=== PATIENT | female | born 1995 | race American Indian/Alaskan Native ===

== ENCOUNTER 2016-11-29 09:28 | Emergency (ER) | payer SELFPAY ==
[2016-11-29 10:22] LABS: Alanine Aminotransferase 10 units/L (7-56); Albumin 4.2 g/dL (3.9-5); Albumin/Globulin Ratio 1.1 %; Alkaline Phosphatase 46 units/L (35-129); Anion Gap 19 mmol/L; Blood Urea Nitrogen 12 mg/dL (7-17); Calcium 8.9 mg/dL (8.4-10.2); Carbon Dioxide 23 mmol/L (22-30); Chloride 103.9 mmol/L (98-107); Glucose 110 mg/dL (65-100); Lipase 30 units/L (13-60); Potassium 3.8 mmol/L (3.6-5.0); Sodium 142 mmol/L (137-145)
[2016-11-29 10:23] LABS: Basophils % (Auto) 0.5 % (0.0-1.8); Eosinophils % (Auto) 2.1 % (0.0-4.3); Hematocrit 35.9 % (30.3-42.9); Hemoglobin 11.8 gm/dl (10.1-14.3); Mean Corpuscular HGB Conc 33 % (30-34); Mean Corpuscular Hemoglobin 28 pg (28-32); Mean Corpuscular Volume 85 fl (79-97); Platelet Count 303 K/mm3 (140-440); Red Blood Count 4.23 M/mm3 (3.65-5.03); Red Cell Distribution Width 13.7 % (13.2-15.2); White Blood Count 6.2 K/mm3 (4.5-11.0)
[2016-11-29 10:45] LABS: Bacteria,Urine 1+ /HPF (Negative); Bilirubin,Urine NEG (Negative); Blood,Urine LG (Negative); Ketones,Urine TR mg/dL (Negative); Leukocyte Esterase,Urine NEG (Negative); Mucus,Urine 2+ /HPF; Nitrite,Urine NEG (Negative); Urobilinogen,Urine < 2.0 mg/dL (<2.0)
[2016-11-29 10:46] LABS: RBC,Urine > 182.0 /HPF (0.0-6.0)
--- NOTE | 2016-11-29 17:05 | Emergency Department Report ---
HPI - General Chief Complaint: Abdominal Pain Time Seen by Provider: 11/29/16 16:34 - HPI HPI: This is a 20-year-old -[place] female , who presents to the ER with flank pain. Patient states pain is 10 out of 10, started this morning around 8, and is accompanied by nausea vomiting but no diarrhea. She states the pain gets better when she sleeps, movement makes it worse. Patient has a history of kidney stone, last one was a year and a half ago. She passed that stone with no issues and did not have to see a urologist. Her last menstrual cycle started 5 days ago and is on its last day. Patient denies any sick contacts, recent travel. 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 She does not have any past medical history except for kidney stones, does not see a primary care doctor. ED Past Medical Hx - Past Medical History Hx Hypertension: No Hx Congestive Heart Failure: No Hx Diabetes: No Hx Deep Vein Thrombosis: No Hx Renal Disease: No Hx Sickle Cell Disease: No Hx Seizures: No Hx Kidney Stones: Yes Hx Asthma: No Hx COPD: No Hx HIV: No - Surgical History Past Surgical History?: No - Family History Family history: hypertension - Social History Smoking Status: Never Smoker Substance Use Type: None - Medications Home Medications: Home Medications Medication Instructions Recorded Confirmed Last Taken Type Ketorolac [Toradol] 10 mg PO Q6H PRN #20 tablet 11/29/16 Unknown Rx traMADol [Ultram] 50 mg PO Q6HR PRN #14 tablet 11/29/16 Unknown Rx ED Review of Systems ROS: Stated complaint: SEVERE SIDE PAIN Other details as noted in HPI Comment: All other systems reviewed and negative Gastrointestinal: abdominal pain, nausea Musculoskeletal: as per HPI, back pain Physical Exam - Physical Exam Vital Signs: Vital Signs 11/29/16 11/29/16 09:45 16:51 Temperature 97.7 F Pulse Rate 76 73 Respiratory 17 16 Rate Blood Pressure 117/80 Blood Pressure 127/58 [Left] O2 Sat by Pulse 99 99 Oximetry Physical Exam: Gen. alert and oriented 3 in no distress Head atraumatic normocephalic Eyes PERR LA EOMI Chest regular rate and rhythm normal S1-S2 lungs clear bilaterally Abdomen soft nondistended, right lower quadrant tenderness, right CVA tenderness Back no point tenderness paravertebral tenderness Neuro no focal deficit. Psych normal mood. ED Course Vital Signs 11/29/16 11/29/16 09:45 16:51 Temperature 97.7 F Pulse Rate 76 73 Respiratory 17 16 Rate Blood Pressure 117/80 Blood Pressure 127/58 [Left] O2 Sat by Pulse 99 99 Oximetry ED Medical Decision Making - Lab Data Result diagrams: 11/29/16 09:50 11/29/16 09:50 Critical care attestation.: If time is entered above; I have spent that time in minutes in the direct care of this critically ill patient, excluding procedure time. ED Disposition Clinical Impression: Renal colic on right side Disposition: DC-01 TO HOME OR SELFCARE Is pt being admited?: No Does the pt Need Aspirin: No Condition: Stable Instructions: Abdominal Pain (ED) Prescriptions: Ketorolac [Toradol] 10 mg PO Q6H PRN #20 tablet PRN Reason: Pain traMADol [Ultram] 50 mg PO Q6HR PRN #14 tablet PRN Reason: Pain Referrals: JASON KRAMER MD [Staff Physician] - 3-5 Days
[2016-11-29] MEDS: TORADOL IV ONE (17:36)
[2016-11-29] MEDS: MORPHINE IV ONE (17:38)
[2016-11-29] MEDS: ZOFRAN IV ONE (17:39)
[2016-11-29] MEDS: NACL 0.9% 1000 ML 1,000 ML IV ONE (17:39)
--- NOTE | 2016-11-29 18:50 | Cat Scan Report ---
FINAL REPORT PROCEDURE: CT ABDOMEN PELVIS W CON TECHNIQUE: Computerized axial tomography of the abdomen and pelvis was performed after the IV injection of iodinated nonionic contrast. HISTORY: RLQ PAIN COMPARISON: No prior studies are available for comparison. FINDINGS: Liver and spleen appear normal. Gallbladder and pancreas display no abnormalities. The adrenal glands and abdominal aorta are normal in size. No left renal abnormality is seen. There is slight delay in enhancement of the right kidney which excretes contrast on delayed imaging. 7 millimeter cyst is seen in the mid right kidney. There is mild right-sided hydronephrosis. The right ureter is dilated into the deep pelvis. There is a stone in the right UVJ that may have just passed into the urinary bladder. It measures 2.7 millimeters in diameter. No bladder wall thickening is seen. Trace free pelvic fluid is likely physiologic. Follicles are seen in the left ovary and there is a 2.9 cm right ovarian cyst. Normal appendix is seen. No evidence of bowel obstruction is seen. IMPRESSION: 2.7 millimeter stone near the right UVJ is seen. This may have just passed into the urinary bladder. There is mild right-sided hydronephrosis but this could be from spasm at the UVJ. No other renal stones are seen. 2.9 cm right ovarian cyst is seen.
[2016-11-29 21:24] VITALS: BP 117/71
== END 2016-11-29 22:19 | disposition home or self-care (01) ==
LOC: ED 09:28
DX: N23 Unspecified renal colic (principal)
CPT/HCPCS: 36415; 74177; 80053; 81001; 83690; 84703; 85025; 96361; 96374; 96375; 99284; J1885; J2270; J2405; J7030; Q9967